=== PATIENT | female | born 1945 | race Caucasian/White ===

== ENCOUNTER → 2017-05-23 | Outpatient (CLI) | payer MEDICARE ==
[~2017-05-23] MED LIST: ALB18R INH; AMOX-559 PO; ASPI81TA94 PO; AUG875 PO; BETA1TAB44 PO; BUPR1PAT8 TD; CALC-547 PO; CALC600T63 PO; CALCIUM; CHO4 PO; DIC10; DOC100 PO; ENZY1TAB9 PO; FLUT16SP20 NS; FURO-45 PO; HYDR-3140 PO; HYDR-4309 PO; HYDR12.558 PO; LANS30CA70 PO; LANS30SU PO; LOR5 PO; LOR5/325 PO; MAX75 PO; METO25TA93 PO; METOPROLOL PO; MULT-1077 PO; MULT-820 PO; MULT-948 PO; MULTI ENZYME PO; NAPR-1043 PO; OMEP-137 PO; ONDA4TAB PO; ONDA8TAB91 PO; PHEN120S18 PO; POTA-1 PO; PRED20TA6 PO; RAN150 PO; RANI-445 PO; TIO18R INH; TRIA-20 PO; VANC125C2 PO; VITAMINS
--- NOTE | 2017-05-23 16:38 | RADIOLOGY IMAGING REPORT ---
FACILITY: [facility] - [place] PATIENT NAME: Tony Thomas : 1945 MR: [id number] V: [id number] EXAM DATE: ORDERING PHYSICIAN: PATO BERTRAND TECHNOLOGIST: Location: [facility] Patient: Tony Thomas : 1945 Visit/Account:[id number] Date of Sevice: 05/23/2017 CHEST W/O CONTRAST History: Lung cancer follow-up TECHNIQUE: Contiguous axial images were performed through the chest to the level of the adrenal gla nds. No IV contrast was administered. Coronal and sagittal reformatting was also performed. Dose Lowe ring Technique One of the following dose optimization techniques was utilized in the performance of this exam: Autom ated exposure control; adjustment of the mA and/or kV according to the patient's size; or use of an i terative reconstruction technique. Specific details can be referenced in the facility's radiology C T exam operational policy. COMPARISON STUDIES: November 22, 2016. Lungs / Pleura: Mild to moderate emphysematous changes are again seen throughout the lungs. previous seen noted groundglass right upper lobe nodule measures 4 mm, is unchanged and best seen on image 25 of series 3. previously noted nodule in the medial left lower lobe is not well seen on the current examination. N o new nodules are identified. There is no evidence of pleural effusions Mediastinum/nodes: negative. Heart and vessels: There are moderate calcifications in the thoracic aorta and branch vessels includ ing the coronary arteries. Mitral annular calcifications also noted Musculoskeletal / Body wall: No aggressive appearing bone lesions are seen Upper abdomen: Cholelithiasis although no demonstration of biliary ductal dilatation IMPRESSION: Mild to moderate emphysematous changes again noted throughout the lungs. Stable 4 mm right upper lobe nodule Previously noted left lower lobe pulmonary nodule not well seen. No new nodules identified Cholelithiasis although no demonstration of biliary ductal dilatation Moderate calcifications of the thoracic aorta and branch vessels including the coronary arteries Report Dictated By: Xiomara Mclain MD at 05/23/2017 4:03 PM Report E-Signed By: Xiomara Mclain MD at 05/23/2017 4:34 PM WSN:[email or web address]
== END ==
LOC: CT 13:03
PROVIDERS: ATTEND Radiology Radiation Oncology
DX: R91.1 Solitary pulmonary nodule (principal); I70.0 Atherosclerosis of aorta; R91.8 Other nonspecific abnormal finding of lung field; K80.20 Calculus of gallbladder without cholecystitis without obstruction
CPT/HCPCS: 71250

== ENCOUNTER 2017-05-28 11:16 | Outpatient (RCR) | payer MEDICARE ==
[2017-06-03] MEDS ORDERED: FLAX100041 PO (11:09)
[2017-06-03] MEDS ORDERED: BUDE1AMP2 IH (11:12)
== END 2017-06-06 14:57 | disposition home or self-care (01) ==
LOC: RAON 11:16
PROVIDERS: ATTEND Radiology Radiation Oncology
DX: Z85.110 Personal history of malignant carcinoid tumor of bronchus and lung (principal); Z92.3 Personal history of irradiation; J44.9 Chronic obstructive pulmonary disease, unspecified; K21.9 Gastro-esophageal reflux disease without esophagitis; J45.909 Unspecified asthma, uncomplicated; Z99.81 Dependence on supplemental oxygen; Z79.899 Other long term (current) drug therapy
CPT/HCPCS: 99212

== ENCOUNTER → 2017-10-16 | Outpatient (CLI) | payer MEDICARE ==
[~2017-10-16] MED LIST changes: +BUDE1AMP2 IH; +FLAX100041 PO
--- NOTE | 2017-10-16 16:08 | RADIOLOGY IMAGING REPORT ---
FACILITY: [facility] - [place] PATIENT NAME: JUAN CARLOS CHARLES : [id number] MR: [id number] V: [id number] EXAM DATE: [id number] ORDERING PHYSICIAN: MALLORY TESFAYE TECHNOLOGIST: Ana Luisa Lynn PROCEDURE:BILATERAL DIGITAL SCREENING MAMMOGRAM WITH CAD ASSISTED INTERPRETATION & 3D TOMOSYNTHESIS COMPARISON:Prior mammograms 10/09/16, 10/07/15, 10/05/14, 10/01/13, 09/30/12, 09/26/11. INDICATIONS:SCREENING FINDINGS: A small amount of fibroglandular tissue is seen throughout the breasts. The parenchymal pattern has remained stable allowing for difference in mammographic technique & patient positioning. There is no evidence of malignant appearing mass, malignant appearing calcifications or other secondary sign of malignancy in either breast. DIAGNOSTIC CATEGORY 1--NEGATIVE. RECOMMENDATIONS: ROUTINE MAMMOGRAM AND CLINICAL EVALUATION. IMPRESSION: BIRADS 1: Negative. No significant abnormality is seen. Dictated by: Xiomara Mclain M.D. on 10/16/2017 at 15:08 Transcribed by: CAMERON on 10/16/2017 at 15:28 Approved by: Xiomara Mclain M.D. on 10/16/2017 at 16:08 [facility]
== END ==
LOC: MAMO 02:02
PROVIDERS: ATTEND Nurse Practitioner Psychiatric/Mental Health
DX: Z12.31 Encounter for screening mammogram for malignant neoplasm of breast (principal)
CPT/HCPCS: 77063; 77067

== ENCOUNTER 2017-11-08 14:12 | Emergency (ER) | payer MEDICARE ==
--- NOTE | 2017-11-08 14:12 | ER Report ---
History and Physical Time Seen By MD: 14:11 HPI/ROS CHIEF COMPLAINT: Chest pain HISTORY OF PRESENT ILLNESS: Patient is a 71-year-old female with past medical history for hypertension and COPD without prior history of cardiac disease. She presents to the emergency department via ambulance after having multiple episodes of chest pain over the past few days. She states the pain is episodic is unrelated to exertion but does get worse with changes in position. She states that she called 911 because she was feeling pressure in her chest with as sociated numbness and tingling to the left arm. She received written and 24 mg of aspirin prehospital E. No history of prior OK. Patient denies smoking. She denies any known family history for cardiac disease. Currently describes the pain as 110 intensity worse with movement. He however states she's been multiple episodes over the past week lasting anywhere from 10-20 minutes associated with chest pressure or shortness of breath and some sweating. REVIEW OF SYSTEMS: Constitutional: No fever, no chills. Eyes: No discharge. ENT: No sore throat. Cardiovascular: Chest pain described as pressure with radiation to left arm Respiratory: No cough, no shortness of breath. Gastrointestinal: No abdominal pain, no vomiting. Genitourinary: No hematuria. Musculoskeletal: No back pain. Skin: No rashes. Neurological: No headache. Allergies: Coded Allergies: Soap (Verified Allergy, Severe, RASH, 09/05/14) clindamycin (Verified Allergy, Severe, C.DIFF, BOWEL INFECTION, 09/05/14) erythromycin base (Verified Allergy, Severe, NAUSEA/VOMITING, 09/05/14) povidone-iodine (Verified Allergy, Severe, RASH, 09/05/14) Home Meds Active Scripts Ondansetron (ZOFRAN ODT) 4 Mg Tab.rapdis, 8 MG PO Q12H, #30 TAB.MARIN 1 Refill Prov:ELLIE BUTCHER COLD ROLL OPERATOR-BC, ONC 05/01/16 Reported Medications Budesonide (PULMICORT) 1 Mg/2 Ml Ampul.neb, 1 MG IH BID, ML 06/03/17 Flaxseed Oil (FLAX SEED OIL) 1,000 Mg Capsule, 1000 MG PO DAILY, CAPSULE 06/03/17 Albuterol Sulfate (VENTOLIN HFA) 18 Gm Inh, 1-2 PUFF INH 3-4XD PRN for SHORTNESS OF BREATH, INH 09/05/14 Aspirin (ASPIRIN) 81 Mg Tab.chew, 81 MG PO QDAY, TAB.CHEW 09/05/14 Triamterene/Hydrochlorothiazid (TRIAMTERENE-HCTZ 37.5-25 MG TB) 1 Each Tablet, 1 EACH PO QDAY 07/30/13 Omeprazole (OMEPRAZOLE) 20 Mg Tablet.dr, 40 MG PO BID TAKE ONE TABLET BY MOUTH ONCE A DAY 07/30/13 Enzymes,Digestive (DIGESTIVE ENZYME) 1 Each Tablet, 1 TAB PO BID 02/11/13 Beta-Carotene(A) W-C & E/Min (VISION VITAMINS) 1 Each Tablet, 1 TAB PO DAILY 02/11/13 Multivit With Calcium,Iron,Min (ESSENTIAL DAILY) 1 Each Tablet, 1 TAB PO DAILY 02/11/13 Potassium Chloride (K-TAB) 10 Meq Tablet.er, 1 TAB PO DAILY 02/11/13 Calcium Carbonate (CALCIUM) 600 Mg Tablet, 1 TAB PO BID 02/11/13 Metoprolol Tartrate (Metoprolol Tartrate) 25 Mg Tablet, 100 MG PO QDAY, 0 Refills 04/19/11 Past Medical/Surgical History Past medical history for COPD and hypertension. Prior history of multiple ankle surgeries and back surgery. Hx Smoking: Yes Smoking Status: Current: Some Days Smoker Exposure to Second Hand Smoke?: No Hx Substance Use Disorder: No Hx Alcohol Use: No Constitutional Vital Sign - Last 24 Hours 11/08/17 11/08/17 11/08/17 11/08/17 14:19 14:20 14:27 14:30 Temp 97.8 Pulse 81 76 Resp 18 22 B/P (MAP) 119/80 119/80 (93) 102/68 (79) Pulse Ox 97 95 O2 Delivery Nasal Cannula 11/08/17 11/08/17 11/08/17 11/08/17 14:34 14:34 14:42 15:00 Pulse 74 76 76 Resp 16 11 18 B/P (MAP) 117/63 (81) Pulse Ox 94 93 95 O2 Delivery Nasal Cannula O2 Flow Rate 3.0 11/08/17 11/08/17 11/08/17 11/08/17 15:11 15:20 15:30 15:40 Pulse 75 Resp 18 B/P (MAP) 152/73 (99) 131/74 (93) 104/83 (90) Pulse Ox 93 Physical Exam General/Constitutional: Patient is awake, alert, nontoxic and in no acute respiratory distress. Head: Normocephalic and atraumatic. Eyes: Conjunctival clear, Sclera are clear and anicteric. Ears:External canals are clear. Tympanic membranes are clear with normal landmarks and light reflex. Nares: No rhinorrhea or bleeding. Turbinates are pink and moist. Oropharyngeal: Mucous membranes are moist. There is no pharyngeal erythema or exudate. There are no palatal petechiae. Uvula is midline and symmetrical. Neck: Supple, no adenopathy. Cardiovascular: Heart is regular rate and rhythm without audible murmurs, rubs or gallops. Pulmonary: Lungs are noted for wheezing bilaterally exacerbated by end expiratory cough or worse exhalation Abdomen: Soft, nontender, no guarding or peritoneal signs. Extremities: No gross deformities, No peripheral cyanosis. Able to move all 4 extremities. Neuro: Alert and oriented X3 Skin: No rashes, skin is warm dry and well perfused. Medical Decision Making Data Points Result Diagram: 11/08/17 1410 11/08/17 1410 Laboratory Hematology Test 11/08/17 14:10 11/08/17 14:50 Red Blood Count 4.84 M/uL (4.17-5.56) Mean Corpuscular Volume 86.5 fL (80.0-96.0) Mean Corpuscular Hemoglobin 29.2 pg (26.0-33.0) Mean Corpuscular Hemoglobin Concent 33.8 g/dL (32.0-36.0) Red Cell Distribution Width 14.7 % (11.5-14.5) Mean Platelet Volume 7.4 fL (7.2-11.1) Neutrophils (%) (Auto) 81.3 % (39.4-72.5) Lymphocytes (%) (Auto) 10.8 % (17.6-49.6) Monocytes (%) (Auto) 5.5 % (4.1-12.4) Eosinophils (%) (Auto) 1.4 % (0.4-6.7) Basophils (%) (Auto) 1.0 % (0.3-1.4) Nucleated RBC Relative Count (auto) 0.1 /100WBC Neutrophils # (Auto) 6.6 K/uL (2.0-7.4) Lymphocytes # (Auto) 0.9 K/uL (1.3-3.6) Monocytes # (Auto) 0.5 K/uL (0.3-1.0) Eosinophils # (Auto) 0.1 K/uL (0.0-0.5) Basophils # (Auto) 0.1 K/uL (0.0-0.1) Nucleated RBC Absolute Count (auto) 0.01 K/uL Sodium Level 138 mmol/L (137-145) Potassium Level 4.2 mmol/L (3.5-5.0) Chloride Level 103 mmol/L (98-107) Carbon Dioxide Level 23 mmol/L (22-31) Blood Urea Nitrogen 32 mg/dl (7-18) Creatinine 1.20 mg/dl (0.52-1.04) Glomerular Filtration Rate Calc 44.5 Random Glucose 157 mg/dl (75-110) Calcium Level 9.0 mg/dl (8.4-10.2) Total Bilirubin 0.3 mg/dl (0.2-1.3) Aspartate Amino Transf (AST/SGOT) 29 U/L (0-35) Alanine Aminotransferase (ALT/SGPT) 28 U/L (0-56) Alkaline Phosphatase 89 U/L (0-126) Troponin I 0.137 ng/ml B-Type Natriuretic Peptide 204 pg/ml (0-100) Total Protein 7.3 g/dl (6.3-8.2) Albumin 4.1 g/dl (3.5-5.0) Prothrombin Time 12.2 seconds (12.0-14.4) Prothromb Time International Ratio 0.91 Activated Partial Thromboplast Time 24 seconds (23-35) Chemistry Test 11/08/17 14:10 11/08/17 14:50 White Blood Count 8.2 k/uL (4.5-11.0) Red Blood Count 4.84 M/uL (4.17-5.56) Hemoglobin 14.1 g/dL (12.0-16.0) Hematocrit 41.8 % (34.0-47.0) Mean Corpuscular Volume 86.5 fL (80.0-96.0) Mean Corpuscular Hemoglobin 29.2 pg (26.0-33.0) Mean Corpuscular Hemoglobin Concent 33.8 g/dL (32.0-36.0) Red Cell Distribution Width 14.7 % (11.5-14.5) Platelet Count 269 K/uL (150-450) Mean Platelet Volume 7.4 fL (7.2-11.1) Neutrophils (%) (Auto) 81.3 % (39.4-72.5) Lymphocytes (%) (Auto) 10.8 % (17.6-49.6) Monocytes (%) (Auto) 5.5 % (4.1-12.4) Eosinophils (%) (Auto) 1.4 % (0.4-6.7) Basophils (%) (Auto) 1.0 % (0.3-1.4) Nucleated RBC Relative Count (auto) 0.1 /100WBC Neutrophils # (Auto) 6.6 K/uL (2.0-7.4) Lymphocytes # (Auto) 0.9 K/uL (1.3-3.6) Monocytes # (Auto) 0.5 K/uL (0.3-1.0) Eosinophils # (Auto) 0.1 K/uL (0.0-0.5) Basophils # (Auto) 0.1 K/uL (0.0-0.1) Nucleated RBC Absolute Count (auto) 0.01 K/uL Glomerular Filtration Rate Calc 44.5 Calcium Level 9.0 mg/dl (8.4-10.2) Total Bilirubin 0.3 mg/dl (0.2-1.3) Aspartate Amino Transf (AST/SGOT) 29 U/L (0-35) Alanine Aminotransferase (ALT/SGPT) 28 U/L (0-56) Alkaline Phosphatase 89 U/L (0-126) Troponin I 0.137 ng/ml B-Type Natriuretic Peptide 204 pg/ml (0-100) Total Protein 7.3 g/dl (6.3-8.2) Albumin 4.1 g/dl (3.5-5.0) Prothrombin Time 12.2 seconds (12.0-14.4) Prothromb Time International Ratio 0.91 Activated Partial Thromboplast Time 24 seconds (23-35) Coagulation Test 11/08/17 14:50 Prothrombin Time 12.2 seconds Prothromb Time International Ratio 0.91 Activated Partial Thromboplast Time 24 seconds EKG/Imaging EKG Interpretation EKG shows sinus rhythm with a ventricular rate of [address] segment or T-wave abnormalities. Monitor Interpretation: Normal Sinus Rhythm ED Course/Re-evaluation Clinical Indication for ER IV: IV Access ED Course 11/08/2017 2:46:45 pm initial EKG appears unremarkable and exam is consistent with chest wall pain however symptoms are concerning. Plan will be cardiac workup with delta troponin and EKG at 4 hour window. Vision does exhibit wheezing on physical exam we will give DuoNeb treatment at this time treating reactive airways disease and bronchospasm. Decision to Disposition Date: Nov 08, 2017 Decision to Disposition Time: 15:12 Depart Departure Latest Vital Signs Vital Signs Date Time Temp Pulse Resp B/P (MAP) Pulse Ox O2 Delivery O2 Flow Rate FiO2 11/08/17 15:40 104/83 (90) 11/08/17 15:30 75 18 93 11/08/17 14:34 Nasal Cannula 3.0 11/08/17 14:19 97.8 Impression: Primary Impression: Acute coronary syndrome Additional Impression: Elevated troponin I measurement Condition: Improved Disposition: XFER TO [facility] (to [facility] [address] [place]) Referrals: MALLORY TESFAYE (PCP) Problem Qualifiers EDY ESCOBEDO MD Nov 08, 2017 14:12
[2017-11-08] MEDS ORDERED: ALBUTEROL/IPRATROPIUM 3 ML NEB NEB ONE (14:25)
[2017-11-08] MEDS ORDERED: NITROGLYCERIN OINT 1 GM PKT TP ONE (14:25)
[2017-11-08 14:34] LABS: PLATELET COUNT, AUTOMATED 269 K/uL (150-450)
--- NOTE | 2017-11-08 14:40 | EKG ---
FAC[place] [facility] [place] PATIENT NAME: JUAN CARLOS CHARLES : [id number] MR: [id number] V: [id number] EXAM DATE: ORDERING PHYSICIAN: EDY ESCOBEDO TECHNOLOGIST: YAHIR Test Reason : CHEST PAIN Blood Pressure : / mmHG Vent. Rate : 081 BPM Atrial Rate : 081 BPM P-R Int : 138 ms QRS Dur : 074 ms QT Int : 366 ms P-R-T Axes : 078 070 076 degrees QTc Int : 425 ms Normal sinus rhythm Poor R wave progression Abnormal ECG Confirmed by ТАТЬЯНА SALMON ([id number]) on 11/08/2017 7:37:08 PM Referred By: FANNY Confirmed By:ТАТЬЯНА SALMON
[2017-11-08] MEDS ORDERED: fentaNYL CITR 100 MCG/2 ML AMP IVP ONE (14:45)
[2017-11-08 15:12] LABS: INR 0.91
[2017-11-08 15:40] VITALS: BP 104/83
--- NOTE | 2017-11-08 15:51 | RADIOLOGY IMAGING REPORT ---
FACILITY: [facility] [place] PATIENT NAME: Tony Thomas : 1945 MR: [id number] V: [id number] EXAM DATE: ORDERING PHYSICIAN: EDY ESCOBEDO TECHNOLOGIST: [place] [facility] [place] : 1945 Visit/Account:[id number] Date of Sevice: 11/08/2017 EXAMINATION: Chest 2 Views HISTORY: Chest pain. COMPARISON: 07/31/2013. FINDINGS: The lungs are clear. No focal consolidation or pleural fluid. No pneumothorax. Normal cardiomediastinal silhouette, with normal heart size and pulmonary vascularity. Aortic calcif ication. Visualized osseous structures are unremarkable. IMPRESSION: No evidence of acute cardiopulmonary disease. Report Dictated By: Mumtaz Cantor MD at 11/08/2017 3:43 PM Report E-Signed By: Mumtaz Cantor MD at 11/08/2017 3:46 PM WSN:[email or web address]
[2017-11-08] MEDS ORDERED: ENOXAPARIN 100 MG/ML SYR SC SCH (21:00)
== END 2017-11-08 16:00 | disposition short-term general hospital (02) ==
LOC: ER 14:17
DX: I24.9 Acute ischemic heart disease, unspecified (principal); I10 Essential (primary) hypertension; R79.89 Other specified abnormal findings of blood chemistry
CPT/HCPCS: 36415; 71046; 83880; 84484; 85025; 85610; 85730; 93005; 94640; 96374; 99285; A9270; J1650; J3010; J7620; 82040; 82247; 82310; 82374; 82435; 82565; 82947; 84075; 84132; 84155; 84295; 84450; 84460; 84520

== ENCOUNTER → 2017-11-08 | Outpatient (CLI) | payer MEDICARE | LOC: AMB 15:51 | PROVIDERS: ATTEND Nurse Practitioner | DX: R07.9 Chest pain, unspecified (principal); R79.89 Other specified abnormal findings of blood chemistry | CPT/HCPCS: A0425; A0426 ==

== ENCOUNTER → 2017-11-08 | Outpatient (CLI) | payer MEDICARE | LOC: AMB 13:45 | PROVIDERS: ATTEND Nurse Practitioner | DX: R07.9 Chest pain, unspecified (principal); J44.9 Chronic obstructive pulmonary disease, unspecified; J45.909 Unspecified asthma, uncomplicated | CPT/HCPCS: A0425; A0427 ==

== ENCOUNTER → 2017-12-05 | Outpatient (CLI) | payer MEDICARE ==
--- NOTE | 2017-12-05 11:14 | RADIOLOGY IMAGING REPORT ---
FACILITY: [facility] - [place] PATIENT NAME: Tony Thomas : 1945 MR: [id number] V: [id number] EXAM DATE: ORDERING PHYSICIAN: GREGORY ESPINOZA TECHNOLOGIST: Location: [facility] [place] Patient: Tony Thomas : 1945 Visit/Account:[id number] Date of Sevice: 12/05/2017 Exam type: CHEST PA AND LAT History: Asthma, shortness of breath Comparison: November 08, 2017. Findings: The lungs are free of acute effusions, infiltrates or edema. No evidence of a pneumothorax or pneumo mediastinum. Cardiac silhouette is normal in size. The trachea is in midline. There are postsurgic al changes of the upper lumbar spine IMPRESSION: 1. No acute cardiopulmonary process is seen Report Dictated By: Xiomara Mclain MD at 12/05/2017 11:09 AM Report E-Signed By: Xiomara Mclain MD at 12/05/2017 11:10 AM WSN:[email or web address]
== END ==
LOC: RAD 10:26
PROVIDERS: ATTEND Internal Medicine Interventional Cardiology
DX: I25.10 Atherosclerotic heart disease of native coronary artery without angina pectoris (principal)
CPT/HCPCS: 71046

== ENCOUNTER → 2017-12-05 | Outpatient (CLI) | payer MEDICARE ==
[2017-12-05 10:46] LABS: PLATELET COUNT, AUTOMATED 297 K/uL (150-450)
[2017-12-05 10:56] LABS: INR 0.9
== END ==
LOC: LAB 10:23
PROVIDERS: ATTEND Physician Assistant
DX: Z01.810 Encounter for preprocedural cardiovascular examination (principal); I10 Essential (primary) hypertension; I25.2 Old myocardial infarction
CPT/HCPCS: 36415; 82310; 82374; 82435; 82565; 82947; 84132; 84295; 84520; 85025; 85610

== ENCOUNTER → 2018-01-02 | Outpatient (CLI) | payer MEDICARE ==
[~2018-01-02] MED LIST changes: -HYDR-4309 PO; +HYDR-653 PO
--- NOTE | 2018-01-02 11:26 | RADIOLOGY IMAGING REPORT ---
[facility] PATIENT NAME: Tony Thomas : 1945 MR: [id number] V: [id number] EXAM DATE: ORDERING PHYSICIAN: SHA SAAVEDRA TECHNOLOGIST: Location: [facility] [place] Patient: Tony Thomas : 1945 Visit/Account:[id number] Date of Sevice: 01/02/2018 CHEST W/O CONTRAST History: History of lung cancer, recent heart attack TECHNIQUE: Contiguous axial images were performed through the chest to the level of the adrenal gla nds. No IV contrast was administered. Coronal and sagittal reformatting was also performed.Dose Lower ing Technique One of the following dose optimization techniques was utilized in the performance of this exam: Autom ated exposure control; adjustment of the mA and/or kV according to the patient's size; or use of an i terative reconstruction technique. Specific details can be referenced in the facility's radiology C T exam operational policy. COMPARISON STUDIES: May 23, 2017. Lungs / Pleura: The previously noted 4 mm ground glass nodule lateral aspect of the right upper lob e is unchanged and is best seen on image 80 of series 4. There is now a nodular area of dense consolidation in the right lung base abutting the junction of t he right middle lobe and right lower lobe measuring approximately 2.2 x 1.3 x 0.9 cm was not apprecia bobby previously. There is more confluent irregular area of airspace consolidation in the inferior rig ht middle lobe measuring approximately 2.6 x 1.7 x 1.7 cm. there are also two small intrafissural no dules identified in the minor fissure on the right largest measuring 6 mm x 3 mm all of these finding s are new There is a 6 mm area of nodular consolidation in the posterior sulcus of the right lower lobe with ad jacent interstitial prominence. Best appreciated on image 286 of series 4. This also represents a n ew finding. There are several small calcified granulomas in the right lower lobe Mild to moderate diffuse emphysematous changes again seen throughout the lungs Mediastinum/nodes: Mediastinal structures not ideally evaluated due to lack of intravenous contrast although no gross evidence of pathologic-appearing mediastinal adenopathy Heart and vessels: At least moderate vascular calcifications are seen in the thoracic aorta and bran ch vessels including the coronary arteries. There may be a coronary stent also present. Calcificati ons are particularly dense at the aortic arch Musculoskeletal / Body wall: No aggressive appearing bone lesions are seen Upper abdomen: Cholelithiasis although no evidence of biliary ductal dilatation is mild thickening the left adrenal gland that appears stable IMPRESSION: The previously noted 4 mm groundglass nodule lateral aspect right upper lobe is stable There are now new areas of nodular and dense consolidation in the right lung base as detailed above. These could represent focal areas of atelectasis or an acute infectious/inflammatory process. Given the history of prior lung cancer however close interval follow-up recommended to exclude malignancy Mild to moderate diffuse emphysematous changes but the lungs Vascular calcifications as described Cholelithiasis Report Dictated By: Xiomara Mclain MD at 01/02/2018 11:09 AM Report E-Signed By: Xiomara Mclain MD at 01/02/2018 11:22 AM WSN:[email or web address]
== END ==
LOC: CT 09:41
PROVIDERS: ATTEND Radiology Radiation Oncology
DX: R91.1 Solitary pulmonary nodule (principal); K80.20 Calculus of gallbladder without cholecystitis without obstruction; I70.90 Unspecified atherosclerosis
CPT/HCPCS: 71250

== ENCOUNTER 2018-01-14 10:00 | Outpatient (RCR) | payer MEDICARE ==
[2018-01-14] MEDS ORDERED: ASPI-757 PO (10:09)
[2018-01-14] MEDS ORDERED: CLOP75TA43 PO (10:09)
[2018-01-14] MEDS ORDERED: LISI5TAB25 PO (10:09)
== END 2018-04-13 ==
LOC: RAON 10:00
PROVIDERS: ATTEND Radiology Radiation Oncology
DX: C34.90 Malignant neoplasm of unspecified part of unspecified bronchus or lung (principal)
CPT/HCPCS: 99212

== ENCOUNTER 2018-02-12 09:00 | Outpatient (RCR) | payer MEDICARE ==
[2018-01-27 17:00] VITALS: BP 126/72
[2018-01-27 17:03] VITALS: BP 122/72
--- NOTE | 2018-01-27 18:31 | CARDIAC REHAB PLAN OF CARE ---
Physician: Martha PENA Patient is being seen: Mu Willingham Medical Diagnosis: NSTEMI, Stent x 2 Date of Initial Evaluation: 2017 SHORT TERM GOALS Short Term Goals Due Date: 02/26/18 Short Term Goals: 72 y/o female comes to cardiac rehab after chest pain, left neck and jaw pain symptoms required EMS transport to [facility] with a diagnosis of NSTEMI and EMS transport to [place] for further evaluation leading to one stent placement (LAD) on November 10, 2017. Continued evaluation revealed EF of 40-45%, and the need for a second stent that was placed on 2017. Patient presents to cardiac rehab alert and oriented, resting room air SPO2 at 88-91%, showing NSR without ectopy and a resting rate of 71. Patient is 5'1", 181 pounds and altered gait using a cane for ambulation. Patient medical hx includes HTM, COPD, Diet controlled DM2, and Osteoarthritis that started when she was a teenager. Patients L-spine has been fused with a hx of two surgeries and two rods placed, with a fusion and hardware removal in 2012. Patient has also fx her right distal tibia and fibula with a total of six surgeries to that ankle and fusion. Patient has acute kidney injury from director long term care use of Ibuprofen for her OA, and complains of left knee pain which she states is from age and compensation for her back and right ankle injuries. Patient if a former smoker, and attended the Pulmonary Rehab class five years ago. Exercise Assessment: Exercise Plan: Patient is 5'1", 181 pounds and is sedentary. Patient will start a 36 visit, phase II program. Goals: Patient previously attended Pulmonary Rehab five years ago and due to OA and injury limitations of exercise will mostly use a NuStep for most of her cardio minutes, but is will to try recumbent bike as well and short intervals on the treadmill. The dumbbell weight workout will start with 2-3 pounds. Exercise Prescription: Patient will do the NuStep and start with 15-20 minutes achieving a 60%-75% of her age predicted max of 150 bpm. THR zone set at 90- 113. Patient can introduce a short interval on the treadmill of 3-5 minutes to start. Mode:Warm up, can include sit to stands and walking on the track. Frequency:Cardiac rehab two times a week, with off day walks encouraged to achieve the minimum of 150 minutes each week. Duration:Patients initial 6 minutes walk test shows patient will need to start with 15-20 minutes on the NuStep and add time as patient can tolerate. Intensity:Patient can start with MET levels at 2.0-3.0, achieving THR zone, and RPE levels of 3-5 on our 0-10 scale. Education:Provided DASH, and Mediterranean diets, and will continue to educate during visits for rehab. Patient already states to eat heart healthy to also help control DM2 with diet. Exercise Reassessment (Date: 02/26/2018 ): Exercise Discharge/Follow-Up (Date: ): Nutrition Assessment: Patient's current diet plan is good with some adjustment still to be made. Patient would like to lose weight from her current 181 pounds towards her healthy BMI max of 132 pounds. Nutrition Plan: Goals:Are to focus on a heart healthy diet (DASH or Mediterranean) Intervention:Patient usually prepared meals with whole foods and already limits eating processed food items. Education:To limit sugars, sugar substitutes, and refined carbohydrates. To understand proper portion sizes, and include healthy snacks in the overall calorie count for that day. Nutrition Reassessment (Date: 02/26/2018 ): Nutrition Discharge/Follow-Up (Date: ): Psychosocial Assessment: Psychosocial Plan: Goals:To understand and commit to the consistency of exercise and eating healthy to make those heart healthy improvements. A goal of reducing stress as much a possible. Include the four major factors for good health which are regular exercise, healthy eating, sleep, and happy, stress free moments. Intervention:On going. Education:The initial HADS scale revealed a normal level of depression, and a normal level of anxiety. Psychosocial Reassessment (Date: _02/26/2018 ): Psychosocial Discharge/Follow-Up (Date: ): Other Core Components/Risk Factors Plan: Goals: To change patient from a sedentary lifestyle and include more minutes of movement. Education:Patient received education on initial exam and will receive on going education during visits for rehab. Other Core Components/Risk Factors Reassessment (Date: _02/26/2018): Other Core Components/Risk Factors Discharge/Follow-Up (Date: ): Cardiac rehab staff will monitor, record, and evaluate, vitals, ECG, and exercise results to provide the best plan of care for the patient during the 36 visit phase II program. CR staff will motivate and educate the patient during visits for rehab. ALISTAIR
[2018-01-29 13:29] VITALS: BP_SYST 120; BP_SYST 122; BP_DIAS 70; BP_DIAS 76
[2018-01-31 17:28] VITALS: BP 120/78
[2018-01-31 17:30] VITALS: BP 122/80
[~2018-02-12 09:00] MED LIST changes: +ASPI-757 PO; +CLOP75TA43 PO; +LISI5TAB25 PO
[2018-02-12 13:20] VITALS: BP 112/58
[2018-02-12 13:21] VITALS: BP 112/58
== END 2018-02-12 18:00 | disposition home or self-care (01) ==
LOC: CARD 09:00
PROVIDERS: ATTEND Internal Medicine Interventional Cardiology
DX: I25.2 Old myocardial infarction (principal); I10 Essential (primary) hypertension; J44.9 Chronic obstructive pulmonary disease, unspecified; Z95.5 Presence of coronary angioplasty implant and graft; E11.9 Type 2 diabetes mellitus without complications; M19.90 Unspecified osteoarthritis, unspecified site; Z98.1 Arthrodesis status; M25.562 Pain in left knee; Z87.891 Personal history of nicotine dependence
CPT/HCPCS: 93798

== ENCOUNTER → 2018-04-17 | Outpatient (CLI) | payer MEDICARE ==
--- NOTE | 2018-04-17 12:19 | RADIOLOGY IMAGING REPORT ---
FACILITY: [facility] [place] PATIENT NAME: Tony Thomas : 1945 MR: [id number] V: [id number] EXAM DATE: ORDERING PHYSICIAN: SHA SAAVEDRA TECHNOLOGIST: Location: [facility] Patient: Tony Thomas : 1945 Visit/Account:[id number] Date of Sevice: 04/17/2018 CT CHEST W/O CONTRAST History: Lung cancer follow-up TECHNIQUE: Contiguous axial images were performed through the chest to the level of the adrenal gla nds. No IV contrast was administered. Coronal and sagittal reformatting was also performed.Dose Lower ing Technique One of the following dose optimization techniques was utilized in the performance of this exam: Autom ated exposure control; adjustment of the mA and/or kV according to the patient's size; or use of an i terative reconstruction technique. Specific details can be referenced in the facility's radiology C T exam operational policy. COMPARISON STUDIES: January 02, 2018. And August 23, 2015 Lungs / Pleura: The previously noted 4 mm groundglass nodule lateral aspect of the right upper lobe is unchanged best seen on image 86 of series 4 The previously noted confluent areas airspace consolidation abutting the junction of the right middle lobe and right lower lobe is no longer seen and probably represented atelectasis. The previously de scribed more confluent airspace consolidation the inferior right middle lobe has essentially resolved and again may have represented atelectasis The two contiguous intrafissural nodules minor fissure on the right are no longer seen nodular area o f consolidation the posterior sulcus of the right lower lobe identified previously is no longer seen. No new nodules or areas of consolidation are identified. Several calcified granulomas again seen in the right lower lobe Mild to moderate diffuse emphysematous changes again seen throughout the lungs Mediastinum/nodes: Mediastinal structures not ideally evaluated due to lack of intravenous contrast although no gross evidence of pathologic-appearing mediastinal adenopathy Heart and vessels: Extensive vascular calcifications are seen throughout the thoracic aorta and bran ch vessels including the coronary arteries. There may also be a coronary stent there is a small esme cardial effusion anteriorly slightly increased Musculoskeletal / Body wall: No aggressive appearing bone lesions are seen Upper abdomen: Cholelithiasis although no evidence of biliary ductal dilatation. Left adrenal glan d appears stable. 1.2 cm hypoattenuating right adrenal nodule appears stable since August 23, 2015 like ly representing an adenoma IMPRESSION: Previously noted 4 mm groundglass nodule lateral aspect right upper lobe is unchanged The previously noted confluent areas of airspace consolidation abutting the junction of the right mid dle lobe and right lower lobe and also along the inferior right middle lobe have essentially resolved and may have represented atelectasis. 2. Contiguous intrafissural nodules in the minor fissure on the right and the area of consolidation posterior sulcus the right lower lobe have also resolved. No new areas of pulmonary consolidation seen. Mild to moderate diffuse emphysematous changes but the lungs Cholelithiasis although no evidence for ductal dilatation Additional chronic findings as described Report Dictated By: Xiomara Mclain MD at 04/17/2018 11:55 AM Report E-Signed By: Xiomara Mclain MD at 04/17/2018 12:15 PM WSN:[email or web address]
== END ==
LOC: CT 09:49
PROVIDERS: ATTEND Radiology Radiation Oncology
DX: R91.8 Other nonspecific abnormal finding of lung field (principal)
CPT/HCPCS: 71250

== ENCOUNTER 2018-04-22 11:43 | Outpatient (RCR) | payer MEDICARE ==
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
== END 2018-05-05 11:55 | disposition home or self-care (01) ==
LOC: RAON 11:43
PROVIDERS: ATTEND Radiology Radiation Oncology
DX: C34.90 Malignant neoplasm of unspecified part of unspecified bronchus or lung (principal); J44.9 Chronic obstructive pulmonary disease, unspecified; J45.909 Unspecified asthma, uncomplicated; Z99.81 Dependence on supplemental oxygen; R91.1 Solitary pulmonary nodule; M19.90 Unspecified osteoarthritis, unspecified site; I25.2 Old myocardial infarction; Z95.5 Presence of coronary angioplasty implant and graft; H35.30 Unspecified macular degeneration; I25.10 Atherosclerotic heart disease of native coronary artery without angina pectoris; K21.9 Gastro-esophageal reflux disease without esophagitis
CPT/HCPCS: 99212

== ENCOUNTER → 2018-05-09 | Outpatient (CLI) | payer MEDICARE | LOC: US 05-05 02:22 | PROVIDERS: ATTEND Internal Medicine Cardiovascular Disease | DX: I25.10 Atherosclerotic heart disease of native coronary artery without angina pectoris (principal); I51.7 Cardiomegaly | CPT/HCPCS: 93306 ==

== ENCOUNTER → 2018-10-13 | Outpatient (CLI) | payer MEDICARE ==
--- NOTE | 2018-10-13 11:55 | RADIOLOGY IMAGING REPORT ---
FACILITY: [facility] PATIENT NAME: Tony Thomas : 1945 MR: [id number] V: [id number] EXAM DATE: ORDERING PHYSICIAN: SHA SAAVEDRA TECHNOLOGIST: Location: [facility] Patient: Tony Thomas : 1945 Visit/Account:[id number] Date of Sevice: 10/13/2018 CT CHEST W/O CONTRAST HISTORY: History of lung cancer. TECHNIQUE: CT chest without intravenous contrast. One of the following dose optimization techniques was utilized in the performance of this exam: Autom ated exposure control; adjustment of the mA and/or kV according to the patient's size; or use of an i terative reconstruction technique. Specific details can be referenced in the facility's radiology C T exam operational policy. CONTRAST: None. COMPARISON: April 17, 2018. FINDINGS: Heart/vessels: Advanced calcification within the LAD with possible underlying stents. Moderate athe rosclerosis within the thoracic aorta. Mediastinum: Small hiatal hernia. Otherwise negative. Lymph nodes: No pathologically enlarged lymph nodes identified. Lungs/pleura: Background of moderate emphysema. Small solid pulmonary nodules within the right lung apex (image 31 of series 4), unchanged. Subsolid nodularity within the right upper lobe measuring up to 5 mm (image 75 of series 4), previously 4 mm when measured in the same fashion. Solid nodule within the right middle lobe measuring up to 4 mm (i mage 204), new since prior exam. 3 mm nodule within the right upper lobe (image 81), new since prior exam. Punctate calcified granulomas within the right lower lobe. Mild linear scarring within the lung base s. Diffuse bronchial wall thickening. No concerning focal consolidation. Visualized upper abdomen: Small gallstone without evidence for acute cholecystitis. Stable small ri ght adrenal adenoma. Mild adenomatous thickening of the left adrenal gland. Bones/soft tissues: Negative. IMPRESSION: 1. Few scattered pulmonary nodularities, as above. There is a new 4 mm nodule within the right midd le lobe and new 3 mm nodule within the right upper lobe. A subsolid nodule within the right upper lo be appears stable to slightly increased in size. Findings are nonspecific and could be infectious/in flammatory however cannot exclude malignancy. Short-term three-month follow-up is recommended. 2. No concerning areas of focal consolidation. 3. Additional incidental/chronic findings, as above. Report Dictated By: Chinedu Hodge MD at 10/13/2018 11:38 AM Report E-Signed By: Chinedu Hodge MD at 10/13/2018 11:47 AM WSN:[email or web address]
== END ==
LOC: CT 01:09
PROVIDERS: ATTEND Radiology Radiation Oncology
DX: Z51.0 Encounter for antineoplastic radiation therapy (principal); R91.8 Other nonspecific abnormal finding of lung field
CPT/HCPCS: 71250